=== PATIENT | female | born 1980 | race Caucasian/White ===

== ENCOUNTER 2017-09-23 09:38 | Emergency (ER) | payer OTHER ==
[~2017-09-23] VITALS: Ht 162.6 cm; Wt 95.2 kg
[2017-09-23 09:40] VITALS: Ht 162.6 cm; Wt 95.2 kg
[2017-09-23 10:43] VITALS: BP 135/78
== END 2017-09-23 11:13 | disposition home or self-care (01) ==
LOC: ED 09:38
DX: M77.9 Enthesopathy, unspecified (principal)

== ENCOUNTER 2018-10-06 07:08 | Day surgery (SDC) | payer OTHER ==
[~2018-10-06] VITALS: Ht 162.6 cm; Wt 95.2 kg
[2018-10-06 08:05] VITALS: BP 142/64
[2018-10-06 11:51] VITALS: BP 105/57
== END 2018-10-06 10:30 | disposition home or self-care (01) ==
LOC: GI 07:08 → OR 12:30 → GI 12:30
PROVIDERS: Internal Medicine Gastroenterology
PROC: 0DBP8ZZ Excision of Rectum, Via Natural or Artificial Opening Endoscopic (ICD-10-PCS; principal; 2018-10-06 11:30)
DX: Z12.11 Encounter for screening for malignant neoplasm of colon (principal); D12.8 Benign neoplasm of rectum; Z80.0 Family history of malignant neoplasm of digestive organs
CPT/HCPCS: 45378; J1200; J1610; J2250; J2310; J3010; J3490